=== PATIENT | female | born 1960 | race Caucasian/White ===

== ENCOUNTER 2017-10-30 15:02 | Emergency (ER) | payer BC ==
[2017-10-30 15:25] VITALS: BP 140/92
--- NOTE | 2017-10-30 15:36 | UC ---
Hand/Wrist HPI - HPI Summary HPI Summary: CLOSED LEFT THUMB INTO CAR DOOR LAST NIGHT. PART OF NAIL IS BLACK. PAIN IS MINIMAL. FULL ROM. - History Of Current Complaint Chief Complaint: UCUpperExtremity Stated Complaint: THUMB INJURY Time Seen by Provider: 10/30/17 15:28 Hx Obtained From: Patient Onset/Duration: Sudden Onset, Lasting Hours, Still Present Severity Initially: Moderate Severity Currently: Moderate Pain Intensity: 5 Pain Scale Used: 0-10 Numeric Character Of Pain: Sharp Aggravating Factor(s): Movement - TOUCH Alleviating Factor(s): Rest Associated Signs And Symptoms: Positive: Swelling, Bruising, Numbness/Tingling Related History: Dominant Hand Right - Allergies/Home Medications Allergies/Adverse Reactions: Allergies Allergy/AdvReac Type Severity Reaction Status Date / Time No Known Allergies Allergy Verified 10/30/17 15:25 Home Medications: Home Medications NK [No Home Medications Reported] 10/30/17 [History Confirmed 10/30/17] PMH/Surg Hx/FS Hx/Imm Hx Previously Healthy: Yes - Surgical History Surgical History: None - Family History Known Family History: Positive: Hypertension - Social History Alcohol Use: Daily Substance Use Type: None Smoking Status (MU): Former Smoker Review of Systems Constitutional: Negative Skin: Bruising - LEFT THUMB, Other - LACERATION LEFT THUMB Respiratory: Negative Cardiovascular: Negative Gastrointestinal: Negative Musculoskeletal: Arthralgia, Edema All Other Systems Reviewed And Are Negative: Yes Physical Exam Triage Information Reviewed: Yes Appearance: Well-Appearing, No Pain Distress, Well-Nourished Vital Signs: Initial Vital Signs Temp 98.7 F 10/30/17 15:19 Pulse 99 10/30/17 15:19 Resp 16 10/30/17 15:19 BP 140/92 10/30/17 15:19 Pulse Ox 98 10/30/17 15:19 Vital Signs Reviewed: Yes Eyes: Positive: Conjunctiva Clear ENT: Positive: Hearing grossly normal Neck: Positive: Supple Respiratory: Positive: No respiratory distress, No accessory muscle use Cardiovascular: Positive: Pulses Normal Abdomen Description: Positive: Soft Musculoskeletal: Positive: ROM Intact, Edema @ - DISTAL LEFT THUMB, Other: - TTP DISTAL LEFT THUMB Neurological: Positive: Alert Psychological: Positive: Age Appropriate Behavior Skin: Positive: Other - BRUISING LEFT DISTAL THUMB WITH SUBUNGUAL HEMATOMA. SMALL LACERATION MEDIAL NAIL BED Diagnostics - Radiology LFT THUMB XRAY Xray Interpretation: Positive (See Comments) - SOFT TISSUE SWELLING, NO FRACTURE IS SEEN. Radiology Interpretation Completed By: Radiologist Hand/Wrist Course/Dx - Differential Dx/Diagnosis Provider Diagnoses: LEFT THUMB CONTUSION/ SUBUNGUAL HEMATOMA Discharge - Sign-Out/Discharge Documenting (check all that apply): Patient Departure All imaging exams completed and their final reports reviewed: Yes - Discharge Plan Condition: Stable Disposition: HOME Patient Education Materials: Subungual Hematoma (ED) Referrals: No Primary Care Phys,NOPCP [Primary Care Provider] - Additional Instructions: XRAY TODAY NEGATIVE FOR FRACTURE OR DISLOCATION KEEP DRESSINGS IN PLACE AND DRY FOR THE FIRST 24 HRS. THEN YOU MAY REMOVE THE DRESSING AND GENTLY CLEANSE WITH SOAP AND WATER. PAT DRY AND RE-BANDAGE. APPLY THIN LAYER ANTIBIOTIC OINTMENT UNDER BANDAGE FOR FIRST 3-4 DAYS ONLY. CHANGE BANDAGE DAILY AND NEEDED IF IT BECOMES SOILED OR WET. SEEK FOLLOW-UP IF YOU DEVELOP SPREADING REDNESS OF THE SKIN, PURULENT DRAINAGE, FEVER, INCREASED PAIN OR ANY OTHER CONCERNING SYMPTOMS. FOLLOW-UP WITH YOUR PCP BACK HOME TO CONFIRM YOUR TETANUS IS UP TO DATE. - Billing Disposition and Condition Condition: STABLE Disposition: Home
--- NOTE | 2017-10-30 16:05 | RAD ---
INDICATION: Left thumb injury. TECHNIQUE: 3 views of the left thumb were obtained. FINDINGS: There is soft tissue swelling throughout the thumb most prominent adjacent to the distal phalanx. No fracture is seen. IMPRESSION: SOFT TISSUE SWELLING, NO FRACTURE IS SEEN.
== END 2017-10-30 16:30 | disposition home or self-care (01) ==
LOC: UCEAST 15:02
DX: S60.012A Contusion of left thumb without damage to nail, initial encounter (principal); Z87.891 Personal history of nicotine dependence; V49.9XXA Car occupant (driver) (passenger) injured in unspecified traffic accident, initial encounter; Y92.9 Unspecified place or not applicable
CPT/HCPCS: 99202; G0463